=== PATIENT | female | born 1950 | race Caucasian/White ===

== ENCOUNTER 2017-08-21 12:06 | Inpatient (IN) ==
[2017-08-21] MEDS ORDERED: 0.9 % Sodium Chloride 1,000 ML IVC ONE (12:45)
[2017-08-21] MEDS ORDERED: Aspirin 325 MG TABLET PO ONE (12:45)
[2017-08-21 13:22] LABS: Basophils % 0.3 %; Eosinophils # 0.2 K/mcL (0.0-0.6); Eosinophils % 2.3 %; Hemoglobin 13.5 g/dL (11.5-15.4); Immature Granulocytes % 0.5 % (0-4); Lymphocytes # 1.7 K/mcL (0.6-4.6); Lymphocytes % 20.8 %; Mean Corpuscular HGB Conc 33.8 g/dL (31.6-35.5); Mean Corpuscular Hemoglobin 30.1 pg (28.0-33.3); Mean Corpuscular Volume 89.3 fL (83.0-100.0); Mean Platelet Volume 10.1 fL (9.4-12.4); Monocytes # 0.9 K/mcL (0.0-1.3); Monocytes % 10.9 %; Neutrophils # 5.2 K/mcL (1.6-8.9); Platelet Count 292 K/mcL (140-400); Red Blood Count 4.48 M/mcL (3.82-4.97); Red Cell Distribution Width 11.9 % (11.5-14.5); Segmented Neutrophils % 65.2 %
[2017-08-21 13:34] LABS: BUN/Creatinine Ratio 37 (6-26); Blood Urea Nitrogen 32 mg/dL (7-20); Calcium 9.1 mg/dL (8.6-10.8); Carbon Dioxide 28 mEq/L (19-29); Chloride 106 mEq/L (98-109); Glucose 97 mg/dL (70-99); Magnesium 1.9 mg/dL (1.6-2.6); Osmolality,Calculated 297 (280-300); Sodium 140 mEq/L (136-145); eGFR For African Americans > 60 (> 60); eGFR For Non-African Americans > 60 (> 60)
--- NOTE | 2017-08-21 13:53 | Emergency Department Note ---
Disposition Clinical Impression: Lightheadedness, Heart palpitations, Chest pressure Disposition: Admitted As Inpatient Condition: Good Time of Disposition: 17:25 Arrhythmia/Palpitations HPI - General Chief Complaint: ED Arrhythmia/Palpitations Stated Complaint: "chest pressure since last night" Time Seen by Provider: 08/21/17 12:12 Source: patient Limitations: no limitations Nursing Notes Reviewed: Yes Vital Signs Reviewed: Yes - History of Present Illness HPI Narrative: 67-year-old female came in with complaints of heart palpitations past 1 night ago. Patient states that one had ago around 7:30 to 8 PM she experienced an onset of chest pressure the last 30 seconds without radiation and lightheadedness. Patient states that the discomfort was about a 3/10. Patient states it went away on its own. Patient states 2 hours later she awoke heavily diaphoretic with heart palpitations. Patient states that it subsided and she went back to sleep. Patient states she woke up this morning around 0500 hrs. with the palpitations again. Patient states it feels like a heavy thumping in her chest but is not have a repeat of the chest pressure. Patient has been having intermittent lightheadedness. Patient has no past medical history for cardiac events or cardiac workup. And is able to walk several miles at a time without any dyspnea. His has a past medical history for hiatal hernia without surgical repair patient does not need any follow-up since 2003 - Related Data Home Medications Medication Instructions Recorded Confirmed Acetaminophen [Tylenol Arthritis] 1,300 mg PO BID PRN 08/21/17 08/21/17 Denosumab [Prolia (For Outpatient 60 mg SQ [id number] 08/21/17 08/21/17 Infusion)] Esomeprazole Magnesium [Nexium 20 mg PO DAILY 08/21/17 08/21/17 24Hr] Lisinopril [Zestril] 5 mg PO DAILY 08/21/17 08/21/17 Mv,Fe,Min/Lutein [A Thru Z Select 1 cap PO DAILY 08/21/17 08/21/17 Women's Tablet] Allergies Allergy/AdvReac Type Severity Reaction Status Date / Time Sulfa (Sulfonamide AdvReac Hives Verified 08/08/17 05:52 Antibiotics) All systems ED: reviewed and negative except as stated. Review of Systems: As Per HPI Constitutional: Denies: fever Past Medical History - Past Medical History Attestation: Yes The following information was validated with the patient. Source: patient Medical history: Reports: arthritis, osteoporosis Surgical history: Reports: hip replacement Psychiatric history: Reports: no psych history - Social History Smoking Status: Former smoker Smokeless Tobacco Status: No Alcohol use: Reports: none Drug use: Reports: none Physical Exam Vital Signs Temperature 98.3 F 08/21/17 12:18 Pulse Rate 75 08/21/17 12:18 Respiratory Rate 16 08/21/17 12:18 Blood Pressure 135/82 08/21/17 12:18 O2 Sat by Pulse Oximetry 98 08/21/17 12:18 Temperature 97.9 F 08/21/17 17:10 Pulse Rate 87 08/21/17 17:10 Respiratory Rate 18 08/21/17 17:10 Blood Pressure 126/69 08/21/17 17:10 O2 Sat by Pulse Oximetry 95 08/21/17 17:10 Oxygen Delivery Oxygen Delivery Room Air 67-year-old female who is alert and oriented 3 and in no acute distress. Patient is nontoxic-appearing. Patient has normal vital signs - General Limitations: no limitations General appearance: alert - Head Head exam: atraumatic, normocephalic, normal inspection - Eye Eye exam: Present: normal appearance, PERRL, EOMI - ENT ENT exam: normal exam, normal oropharynx, mucous membranes moist - Neck Neck exam: Present: normal inspection, full ROM, trachea midline - Chest Chest inspection: Present: normal inspection, symmetric chest wall rise - Respiratory Respiratory exam: Present: normal lung sounds bilaterally. Absent: respiratory distress, wheezes - Cardiovascular Cardiovascular exam: Present: regular rate, normal rhythm, normal heart sounds - Abdominal Exam Abdominal exam: Present: soft, Non-Tender. Absent: tenderness, distention, guarding, rebound, rigidity - Extremities Exam Extremities exam: Present: normal inspection, full ROM. Absent: tenderness, pedal edema - Expanded Lower Extremity Exam Hip/Pelvis exam: Present: normal inspection, full ROM Upper leg exam: Present: normal inspection, full ROM Knee exam: Present: normal inspection, full ROM Lower leg exam: Present: normal inspection, full ROM Ankle exam: Present: normal inspection, full ROM Foot/toe exam: Present: normal inspection, full ROM Neurovascular/Tendon exam: Present: normal capillary refill, sensory deficit. Absent: pulse deficit, motor deficit, tendon deficit - Back Exam Back exam: Present: normal inspection, full ROM. Absent: tenderness, CVA tenderness (R), CVA tenderness (L) - Neurological Exam Neurological exam: Present: alert, oriented X3 - Psychiatric Psychiatric exam: Present: normal affect, normal mood - Skin Skin exam: Present: warm, dry, intact, normal color Course Vital Signs Temperature 98.3 F 08/21/17 12:18 Pulse Rate 75 08/21/17 12:18 Respiratory Rate 16 08/21/17 12:18 Blood Pressure 135/82 08/21/17 12:18 O2 Sat by Pulse Oximetry 98 08/21/17 12:18 Temperature 97.9 F 08/21/17 17:10 Pulse Rate 87 08/21/17 17:10 Respiratory Rate 18 08/21/17 17:10 Blood Pressure 126/69 08/21/17 17:10 O2 Sat by Pulse Oximetry 95 08/21/17 17:10 Oxygen Delivery Oxygen Delivery Room Air Arrhythmia/Palpitations - [facility] Narrative Medical decision making narrative: Chest pain ACS/RI rule. Patient currently has no chest pain/pressure. Also considering PE but patient does not present with tachycardia nor does patient has any decrease in O2 sats. EKG shows no indicators for heart strain or ischemia. No dysrhythmia. Patient's lab work is negative for elevation of troponin, or TSH. Patient does not have any abnormal chemistries. Chest x-ray clear of any abnormalities. No widening of mediastinum, no obscuration of the aortic knob. Patient does have elevation of left hemidiaphragm which is stable from previous chest x-ray taken previously on 09/2016. Current plan is for patient to be admitted for evaluation since she was symptomatic with lightheadedness. Patient on reexamination is feeling a lot better and has not had any recurrence of symptoms. Patient accepts this is for admission for evaluation. Dr. Ya the hospitalist's except the patient for admission at 1431 hrs. - Lab Data Lab results reviewed: Yes I reviewed the patient's lab results. Lab results narrative: Short CBC 08/21/17 Range/Units 13:04 WBC 8.0 (4.3-11.1) K/mcL Hgb 13.5 (11.5-15.4) g/dL Hct 40.0 (35.3-44.9) % Plt Count 292 (140-400) K/mcL Neutrophils # 5.2 (1.6-8.9) K/mcL BMP 08/21/17 Range/Units 13:04 Sodium 140 (136-145) mEq/L Potassium 4.0 (3.5-4.5) mEq/L Chloride 106 (98-109) mEq/L Carbon Dioxide 28 (19-29) mEq/L BUN 32 H (7-20) mg/dL Creatinine 0.86 (0.57-1.11) mg/dL Glucose 97 (70-99) mg/dL Calcium 9.1 (8.6-10.8) mg/dL Cardiac Enzymes 08/21/17 Range/Units 13:04 Troponin I 0.00 (0-0.03) ng/mL Result diagrams: 08/21/17 13:04 08/21/17 13:04 Lab Results 08/21/17 08/21/17 08/21/17 Range/Units 13:04 13:04 13:04 WBC 8.0 (4.3-11.1) K/mcL RBC 4.48 (3.82-4.97) M/mcL Hgb 13.5 (11.5-15.4) g/dL Hct 40.0 (35.3-44.9) % MCV 89.3 (83.0-100.0) fL MCH 30.1 (28.0-33.3) pg MCHC 33.8 (31.6-35.5) g/dL RDW 11.9 (11.5-14.5) % Plt Count 292 (140-400) K/mcL MPV 10.1 (9.4-12.4) fL Immature Gran % 0.5 (0-4) % Seg Neutrophils % 65.2 % Lymphocytes % 20.8 % Monocytes % 10.9 % Eosinophils % 2.3 % Basophils % 0.3 % Neutrophils # 5.2 (1.6-8.9) K/mcL Lymphocytes # 1.7 (0.6-4.6) K/mcL Monocytes # 0.9 (0.0-1.3) K/mcL Eosinophils # 0.2 (0.0-0.6) K/mcL Basophils # 0.0 (0.0-0.2) K/mcL Sodium 140 (136-145) mEq/L Potassium 4.0 (3.5-4.5) mEq/L Chloride 106 (98-109) mEq/L Carbon Dioxide 28 (19-29) mEq/L BUN 32 H (7-20) mg/dL Creatinine 0.86 (0.57-1.11) mg/dL Est GFR ( Amer) > 60 (> 60) Est GFR (Non-Af Amer) > 60 (> 60) BUN/Creatinine Ratio 37 H (6-26) Glucose 97 (70-99) mg/dL Calculated Osmolality 297 (280-300) Calcium 9.1 (8.6-10.8) mg/dL Magnesium 1.9 (1.6-2.6) mg/dL Troponin I 0.00 (0-0.03) ng/mL TSH 1.460 (0.350-4.840) mcIU/mL - Radiology Data Radiology results reviewed: Yes I reviewed the patient's radiology results. Chest X-Ray 08/21/17 12:47 IMPRESSION: Stable examination without acute focal process. Findings of COPD, stable. Stable elevation of the left hemidiaphragm. D/ / Anshu Gautam MD / Anshu Gautam MD Interpreting Provider: Anshu Gautam MD - EKG Data EKG attestation: Yes I reviewed and interpreted this EKG. EKG shows normal: sinus rhythm Rate: normal Rhythm: NSR When compared to previous EKG there are: no significant changes Interpretation: no acute changes, normal EKG
--- NOTE | 2017-08-21 14:13 | Emergency Department Note ---
START Narrative - START START: I examined this patient and my medical decision-making was reviewed with the Resident Physician. I agree with the documented findings, disposition and treatment plan as described except to the extent set forth below. 67 yo F here for chest pain multiple risk factors with age included good story for CAD will admit cxr stable neg labs ekg ok
[2017-08-21] MEDS ORDERED: Acetaminophen 325 MG TABLET PO PRN (16:10)
[2017-08-21] MEDS ORDERED: Ondansetron 4 MG/2 ML VIAL IVP PRN (16:10)
[2017-08-21] MEDS ORDERED: Naloxone 0.4 MG/ML INJ IVP PRN ×2 (16:10→20:36)
--- NOTE | 2017-08-21 16:27 | Internal Med History&Physical ---
Date of Encounter: 08/21/17 Time of Encounter: 16:26 Assessment and Plan (1) Lightheadedness Current visit: Yes Status: Acute Patient put on fall precaution mild IV fluid hydration for lightheadedness (2) Heart palpitations Current visit: Yes Status: Acute patient being put on telemetry to monitor cardiac rhythm also cardiac enzymes monitored (3) Chest pressure Current visit: Yes Status: Acute Patient put on telemetry and serial troponin .nitroglycerin for chest pain cardiac enzyme monitoring stress test and cardiology consult Internal Medicine - H&P: HPI Chief complaint: Chest pain and palpitation Admitted From: Home Plans for Post Hospital Care: Home History of present illness: Ms. Vargas is a 67 year old female Shazia Vargas is a 67-year-old female, who has a medical history that include hypertension and GERD, she was in this facility on August 08 with complaint of palpitations and chest pressure. She presents today complaining of chest pressure , palpitation and lightheadedness which started last night she did not do anything to make it better or worse. Initial evaluation indicated that the EKG was benign . part of her plan of care is for her to have a stress test during this admission. She denies nausea or vomiting she denies abdominal pain she also denies headache Past Med Surg Social Fam HX - Past Medical History Medical history: arthritis, osteoporosis Psychiatric history: no psych history - Past Surgical History Surgical History: hip replacement - Social History Smoking Status: Former smoker Smokeless Tobacco Status: No Alcohol use: none Drug use: none Internal Medicine - H&P: Meds Acetaminophen [Tylenol Arthritis] 1,300 mg PO BID PRN 08/21/17 [History] Denosumab [Prolia (For Outpatient Infusion)] 60 mg SQ [id number] 08/21/17 [History ] Esomeprazole Magnesium [Nexium 24Hr] 20 mg PO DAILY 08/21/17 [History] Lisinopril [Zestril] 5 mg PO DAILY 08/21/17 [History] Mv,Fe,Min/Lutein [A Thru Z Select Women's Tablet] 1 cap PO DAILY 08/21/17 [ History] 3 Allergy/AdvReac Type Severity Reaction Status Date / Time Sulfa (Sulfonamide AdvReac Hives Verified 08/08/17 05:52 Antibiotics) All Systems PM: A 10-system review of systems was performed and is negative for pertinent findings except as documented above in the HPI. - Constitutional Constitutional: no chills, no fever(s), no night sweats - EENT Eyes: no change in vision, no discharge, no pain, no photophobia Ears: no ear discharge, no ear pain, no tinnitus Nose, mouth and throat: no dysphagia, no nasal discharge, no neck pain, no sore throat - Cardiovascular Cardiovascular ROS IM: chest pain, lightheadedness, palpitations, no diaphoresis , no dyspnea, no syncope - Respiratory Respiratory: no cough, no dyspnea, no wheezing, no excessive phlegm production - Gastrointestinal Gastrointestinal: no abdominal pain, no diarrhea, no hematemesis, no hematochezia, no melena, no nausea, no vomiting - Genitourinary Genitourinary: no change in urinary stream, no dysuria, no flank pain, no hematuria - Musculoskeletal Musculoskeletal ROS IM: no numbness, no tingling - Integumentary Integumentary IM: no rash, no unusual bruising - Neurological Neurological ROS: no confusion, no convulsions, no focal weakness, no numbness, no tingling, no tremor(s) - Hematologic/Lymphatic Hematologic/Lymphatic: no easy bruising - Constitutional Vitals: Temp Pulse Resp BP Pulse Ox 97.9 F 77 16 160/92 98 08/21/17 12:55 08/21/17 14:59 08/21/17 14:59 08/21/17 14:59 08/21/17 14:59 General appearance: Present: cooperative, A&O X 3, pleasant, answers questions appropriately - Head Head exam: Present: atraumatic - Eye Eye exam: Present: PERRL - ENT ENT exam: Present: mucous membranes moist - Neck Neck exam general surgery: Present: supple - Expanded Neck Exam Neck exam: Absent: anterior neck swelling - Respiratory Respiratory exam: Present: CTAB - Cardiovascular Cardiovascular exam: Present: +S1, +S2, tachycardia - GI/Abdominal GI/Abdominal exam: Present: normal bowel sounds - Extremities Exam Extremities exam: Present: warm, radial pulses palpable and symmetrical. Absent : calf tenderness, cyanotic, pedal edema - Neurological Exam Neurological exam: Present: CN II-XII intact, oriented X3, no focal deficits. Absent: pronater drift, facial droop, speech deficit - Psychiatric Psychiatric exam: Present: normal affect, normal mood - Skin Skin exam: Present: dry, intact Internal Med - H&P Results - Labs CBC & Chem 7: 08/21/17 13:04 08/21/17 13:04 - Attending Attestation Rudy Ya
[2017-08-21] MEDS: *HR* Heparin 5,000 UNIT/ML VIAL SQ SCH (17:38)
[2017-08-22 01:16] LABS: Hematocrit 36.5 % (35.3-44.9); Hemoglobin 12.3 g/dL (11.5-15.4); Mean Corpuscular HGB Conc 33.7 g/dL (31.6-35.5); Mean Corpuscular Hemoglobin 30.2 pg (28.0-33.3); Mean Corpuscular Volume 89.7 fL (83.0-100.0); Mean Platelet Volume 10.1 fL (9.4-12.4); Platelet Count 254 K/mcL (140-400); Red Blood Count 4.07 M/mcL (3.82-4.97); Red Cell Distribution Width 11.9 % (11.5-14.5)
[2017-08-22 01:33] LABS: BUN/Creatinine Ratio 34 (6-26); Blood Urea Nitrogen 26 mg/dL (7-20); Calcium 8.7 mg/dL (8.6-10.8); Carbon Dioxide 25 mEq/L (19-29); Chloride 111 mEq/L (98-109); Glucose 98 mg/dL (70-99); Osmolality,Calculated 297 (280-300); Potassium 4.3 mEq/L (3.5-4.5); Sodium 141 mEq/L (136-145); eGFR For African Americans > 60 (> 60); eGFR For Non-African Americans > 60 (> 60)
[2017-08-22] MEDS: *HR* Heparin 5,000 UNIT/ML VIAL SQ SCH (05:20)
[2017-08-22 07:10] VITALS: BP 136/86
[2017-08-22] MEDS ORDERED: Multivit/Ca/Min/Fe/FA 1 TAB TABLET PO SCH (09:00)
--- NOTE | 2017-08-22 10:08 | Discharge Summary ---
Date of Encounter: 08/22/17 Time of Encounter: 10:06 - Discharge Medications Home Medications: Acetaminophen [Tylenol Arthritis] 1,300 mg PO BID PRN 08/21/17 [History] Denosumab [Prolia (For Outpatient Infusion)] 60 mg SQ [id number] 08/21/17 [History ] Esomeprazole Magnesium [Nexium 24Hr] 20 mg PO DAILY 08/21/17 [History] Lisinopril [Zestril] 5 mg PO DAILY 08/21/17 [History] Mv,Fe,Min/Lutein [A Thru Z Select Women's Tablet] 1 cap PO DAILY 08/21/17 [ History] Allergies/Adverse Reactions: 3 Allergy/AdvReac Type Severity Reaction Status Date / Time Sulfa (Sulfonamide AdvReac Hives Verified 08/08/17 05:52 Antibiotics) Date of admission: 08/21/17 16:10 Primary care physician: Harriett Bradley MD - Patient Status Disposition: Left Against Medical Advice Condition: Good - Discharge Instructions Follow Up With: Harriett Bradley MD [Primary Care Provider] - Hospital course: Ms. Vargas is a 67 year old female who presented with chest pain, she however refused further cardiac evaluation and left against medical advice prior to being seen by a physician today. - Time Spent with Patient Total time spent providing and/or coordinating discharge services: - Constitutional Vitals: Temp Pulse Resp BP Pulse Ox 98 F 73 16 136/86 99 08/22/17 07:09 08/22/17 07:09 08/22/17 07:09 08/22/17 07:09 08/22/17 07:09 General appearance: Present: cooperative, A&O X 3, pleasant, answers questions appropriately
--- NOTE | 2017-08-22 17:13 | Electrocardiograph Report ---
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
== END 2017-08-22 08:24 | disposition left against medical advice (07) | DRG 313 ==
LOC: 3BNU 12:06 → EMEROO 12:06 → SUATTDRO 16:10 → 3BNU 17:30
PROVIDERS: ADMIT Family Medicine; ATTEND Internal Medicine